=== PATIENT | female | born 1995 | race Caucasian/White ===

== ENCOUNTER 2021-08-27 11:26 | Inpatient (IN) | payer BC ==
[~2021-08-27] VITALS: Ht 162.6 cm; Wt 57.7 kg
[2021-08-27] MEDS ORDERED: normal saline 1000ML IV soln IVB ONE ×2 (11:50→13:00)
[2021-08-27] MEDS ORDERED: ondansetron/PF 4mg/2ml inj IV ONE (12:30)
[2021-08-27 12:43] LABS: BASOPHILS % (AUTO) 0.4 % (0-1); EOSINOPHILS % (AUTO) 0.1 % (0-6); HEMATOCRIT 47.4 % (35.0-45.0); HEMOGLOBIN 15.8 g/dl (12.0-16.0); LYMPHOCYTES # (AUTO) 1.1 X10'3 (1.1-4.8); LYMPHOCYTES % (AUTO) 9.2 % (21-51); MEAN CORPUSCULAR HEMOGLOBIN 33.1 PG (27.0-31.0); MEAN CORPUSCULAR HGB CONC 33.2 g/dL (33.0-36.5); MEAN CORPUSCULAR VOLUME 99.7 FL (78-98); MEAN PLATELET VOLUME 8.6 FL (7.4-10.4); MONOCYTES # (AUTO) 0.7 X10'3 (0-0.9); MONOCYTES % (AUTO) 5.6 % (2-12); NEUTROPHILS # (AUTO) 10.4 X10'3 (1.8-7.7); NEUTROPHILS % (AUTO) 84.7 % (42-75); PLATELET COUNT 406 X10'3 (140-440); RED BLOOD COUNT 4.75 X10'6 (4.20-5.60); RED CELL DISTRIBUTION WIDTH 14.8 % (11.5-14.5); WHITE BLOOD COUNT 12.2 X10'3 (4.5-11.0)
[2021-08-27 12:58] LABS: ALANINE AMINOTRANSFERASE 23 U/L (12-78); ALBUMIN 3.9 G/DL (3.4-5.0); ALBUMIN/GLOBULIN RATIO 0.8 (1.1-1.5); ALKALINE PHOSPHATASE 205 IU/L (46-116); ANION GAP 26 (8-16); ASPARTATE AMINO TRANSFERASE 24 U/L (10-37); BILIRUBIN,TOTAL 0.9 MG/DL (0.1-1.0); BLOOD UREA NITROGEN 12 MG/DL (7-18); BUN/CREATININE RATIO 11.8 (6.6-38.0); CALCIUM 9.4 MG/DL (8.5-10.1); CHLORIDE 95 MMOL/L (99-107); CREATININE 1.02 MG/DL (0.40-0.90); LIPASE 53 U/L (73-393); MAGNESIUM 2.4 MG/DL (1.5-2.4); PHOSPHORUS 5.1 MG/DL (2.3-4.5); POTASSIUM 5.9 MMOL/L (3.5-5.1); SODIUM 130 MMOL/L (135-145); TOTAL PROTEIN 8.9 G/DL (6.4-8.2); eGFR 67 ML/MIN
[2021-08-27] MEDS ORDERED: insulin regular, human 10 units/0.1 ml syringe IV ONE (13:00)
[2021-08-27 13:07] LABS: GLUCOSE 494 MG/DL (70-104); TOTAL CARBON DIOXIDE 9.3 MMOL/L (24-32)
[2021-08-27] MEDS ORDERED: potassium Cl 20 mEq SR tablet PO PRN ×3 (13:25→15:05)
[2021-08-27] MEDS ORDERED: sodium phosphate inj. 15 MMOL in dextrose 5%-water 250 ML IV PRN (13:25)
[2021-08-27] MEDS ORDERED: sodium bicarbonate (8.4%) inj. 100 MEQ in dextrose 5% water 500ml 500 ML IV PRN ×2 (13:25→15:05)
[2021-08-27] MEDS ORDERED: Neutra Phos packet PO PRN ×2 (13:25→15:05)
[2021-08-27] MEDS ORDERED: sodium phosphate inj. 30 MMOL in dextrose 5%-water 250 ML IV PRN ×2 (13:25→15:05)
[2021-08-27] MEDS ORDERED: Insulin Reg/NS 100units/100mL 100 ML IV SCH (13:25)
[2021-08-27] MEDS ORDERED: potassium CL 20mEq in D5-1/2NS 1,000 ML IV PRN ×2 (13:25→15:05)
[2021-08-27] MEDS ORDERED: sodium bicarbonate (8.4%) inj. 50 MEQ in dextrose 5% water 500ml 250 ML IV PRN ×2 (13:25→15:05)
[2021-08-27] MEDS ORDERED: potassium Cl 40MEQ/1/2NS 520ml 520 ML IV PRN ×4 (13:25→15:05)
[2021-08-27 13:39] LABS: CLARITY,URINE CLEAR (Clear); COLOR,URINE YELLOW (Yellow); GLUCOSE, URINE 500 mg/dl (Neg); KETONES,URINE >=80 mg/dl (Neg); LEUKOCYTE ESTERASE ,URINE NEGATIVE (Neg); NITRITES, URINE NEGATIVE (Neg); OCCULT BLOOD,URINE TRACE-INTACT (Neg); PH,URINE 5.5 (4.8-8.0); PROTEIN,URINE NEGATIVE (Neg); UROBILINOGEN,URINE 0.2 E.U/dL (0.2-1.0)
[2021-08-27 13:40] LABS: UA COLLECTION TYPE CLN CATCH MIDSTREAM
[2021-08-27 13:54] LABS: SQUAMOUS EPITHELIAL CELL,UR FEW /LPF (FEW); URINE AMPHETAMINE SCREEN NEGATIVE (Neg); URINE BARBITUATE SCREEN NEGATIVE (Neg); URINE BENZODIAZEPINES SCREEN NEGATIVE (Neg); URINE CANNABINOID SCREEN NEGATIVE (Neg); URINE COCAINE SCREEN NEGATIVE (Neg); URINE METHADONE SCREEN NEGATIVE (Neg); URINE OPIATE SCREEN NEGATIVE (Neg); URINE PHENCYCLIDINE SCREEN NEGATIVE (Neg)
[2021-08-27 13:57] LABS: BACTERIA,URINE FEW /HPF (Neg); RBC,URINE 0-2 /HPF (0-2); WBC,URINE NONE SEEN /HPF (0-4); YEAST FEW /HPF (NEGATIVE)
[2021-08-27] MEDS: normal saline 1000ml 1,000 ML IV SCH ×8 (13:58→22:56)
[2021-08-27 13:59] LABS: ABG HCO3 4.2 mmol/L (22.0-26.0); ABG OXYGEN SATURATION 98.2 % (94-97); ABG PCO2 (T) 13.2 mmHg (32.0-45.0); ABG PO2 (T) 130.4 mmHg (75.0-100.0); ALLEN'S TEST POSITIVE; FCOHb 0.8 % (0.0-3.9); FMetHb 0.3 % (0.0-1.5); FO2Hb 97.1 % (94-97); PATIENT TEMPERATURE 36.2; TOTAL HEMOGLOBIN 14.9 G/dl (12.0-16.0)
[2021-08-27 14:01] LABS: ALBUMIN 3.2 G/DL (3.4-5.0); ANION GAP 24 (8-16); BLOOD UREA NITROGEN 11 MG/DL (7-18); BUN/CREATININE RATIO 11.6 (6.6-38.0); CALCIUM 7.8 MG/DL (8.5-10.1); CHLORIDE 103 MMOL/L (99-107); CREATININE 0.95 MG/DL (0.40-0.90); GLUCOSE 424 MG/DL (70-104); POTASSIUM 5.8 MMOL/L (3.5-5.1); SODIUM 136 MMOL/L (135-145); eGFR 72 ML/MIN
[2021-08-27 14:13] LABS: TOTAL CARBON DIOXIDE 8.9 MMOL/L (24-32)
[2021-08-27] MEDS ORDERED: famotidine 20mg tablet PO ONE (14:20)
[2021-08-27] MEDS ORDERED: HYDROcodone/acetaminophen 5mg/325mg tablet PO PRN (15:05)
[2021-08-27] MEDS ORDERED: magnesium Cl slow-release 64mg tablet PO PRN (15:05)
[2021-08-27] MEDS ORDERED: potassium CL 10mEq/100ml bag 100 ML IV PRN (15:05)
[2021-08-27] MEDS ORDERED: magnesium 4gm in 100ml NS 100 ML IV PRN (15:05)
[2021-08-27] MEDS ORDERED: ondansetron/PF 4mg/2ml inj IV PRN (15:05)
[2021-08-27] MEDS ORDERED: insulin regular, human U-100 3ml vial - multi-dose IV PRN (15:05)
[2021-08-27] MEDS ORDERED: mag hydrox/Alum hydrox/simeth 30ml oral suspension PO PRN (15:05)
[2021-08-27] MEDS ORDERED: magnesium 2GM in 50ml NS 50 ML IV PRN (15:05)
[2021-08-27] MEDS ORDERED: acetaminophen 325mg tablet PO PRN ×2 (15:05)
[2021-08-27] MEDS ORDERED: magnesium hydroxide 30ml (MOM) UD suspension PO PRN (15:05)
[2021-08-27] MEDS ORDERED: POTASSIUM BICARB 20meq eff tab 20 MEQ TABLET.EFF PO PRN ×2 (15:05)
[2021-08-27] MEDS ORDERED: HYDROcodone/acetaminophen 10/325mg tab PO PRN (15:05)
[2021-08-27] MEDS ORDERED: INSU100V11 SQ (16:21)
[2021-08-27] MEDS ORDERED: INSU100V41 SQ (16:21)
[2021-08-27] MEDS ORDERED: ETON1VAG VG (16:21)
[2021-08-27] MEDS: dextrose 5%-1/2 normal saline 1,000 ML IV SCH ×2 (16:31→20:10)
[2021-08-27 17:54] LABS: ALBUMIN 2.7 G/DL (3.4-5.0); ANION GAP 19 (8-16); BLOOD UREA NITROGEN 8 MG/DL (7-18); BUN/CREATININE RATIO 10.8 (6.6-38.0); CALCIUM 7.2 MG/DL (8.5-10.1); CHLORIDE 108 MMOL/L (99-107); CREATININE 0.74 MG/DL (0.40-0.90); GLUCOSE 210 MG/DL (70-104); PHOSPHORUS 2.1 MG/DL (2.3-4.5); POTASSIUM 4.7 MMOL/L (3.5-5.1); SODIUM 136 MMOL/L (135-145); eGFR > 90 ML/MIN
[2021-08-27 19:35] LABS: BASOPHILS # (AUTO) 0.1 X10'3 (0-0.2); BASOPHILS % (AUTO) 0.4 % (0-1); EOSINOPHILS % (AUTO) 0.1 % (0-6); HEMATOCRIT 39.8 % (35.0-45.0); HEMOGLOBIN 13.2 g/dl (12.0-16.0); LYMPHOCYTES # (AUTO) 2.1 X10'3 (1.1-4.8); LYMPHOCYTES % (AUTO) 13.7 % (21-51); MEAN CORPUSCULAR HEMOGLOBIN 33.4 PG (27.0-31.0); MEAN CORPUSCULAR HGB CONC 33.3 g/dL (33.0-36.5); MEAN CORPUSCULAR VOLUME 100.4 FL (78-98); MEAN PLATELET VOLUME 7.8 FL (7.4-10.4); MONOCYTES % (AUTO) 6.4 % (2-12); NEUTROPHILS # (AUTO) 12.3 X10'3 (1.8-7.7); NEUTROPHILS % (AUTO) 79.4 % (42-75); PLATELET COUNT 341 X10'3 (140-440); RED BLOOD COUNT 3.97 X10'6 (4.20-5.60); RED CELL DISTRIBUTION WIDTH 14.8 % (11.5-14.5); WHITE BLOOD COUNT 15.5 X10'3 (4.5-11.0)
[2021-08-27 20:00] VITALS: BP 103/72
[2021-08-27] MEDS: K and/or MAG REPLACEMENT MC SCH (20:00)
[2021-08-27] MEDS: docusate sod 100mg capsule PO SCH (20:00)
[2021-08-27] MEDS ORDERED: K and/or MAG REPLACEMENT MC SCH ×2 (20:00)
[2021-08-27] MEDS: Insulin Reg/NS 100units/100mL 100 ML IV SCH (20:48)
[2021-08-27] MEDS: enoxaparin 40mg/0.4ml syringe SQ SCH (21:58)
[2021-08-27 22:00] VITALS: BP 108/76
[2021-08-27 22:17] LABS: PHOSPHORUS 1.7 MG/DL (2.3-4.5)
--- NOTE | 2021-08-27 22:46 | NUR ---
patient arrived to unit about 1999, peasant and denies pain, just fatigued. nausea and vomiting has improved since admit. Patient blood glucose staying stable in 220s, denies pain, up to bathroom SBA with IV lines. Patient states she is supposed to wear glasses but needs new prescription, had blurred vision on admit but has improved, last BM 08/26. Patient phos low with last lab and PRN sodium phosphate 15Mmol requested from pharmacy along with new bag of myxredlin insulin infusion. Patient able to adjust position and makes needs known. Continuing hourly accuchecks.
[2021-08-27 22:57] LABS: ALBUMIN 2.6 G/DL (3.4-5.0); ANION GAP 14 (8-16); BLOOD UREA NITROGEN 6 MG/DL (7-18); BUN/CREATININE RATIO 7.8 (6.6-38.0); CALCIUM 7.4 MG/DL (8.5-10.1); CHLORIDE 106 MMOL/L (99-107); CREATININE 0.77 MG/DL (0.40-0.90); GLUCOSE 226 MG/DL (70-104); POTASSIUM 4.3 MMOL/L (3.5-5.1); SODIUM 132 MMOL/L (135-145); eGFR > 90 ML/MIN
[2021-08-27 23:07] LABS: TOTAL CARBON DIOXIDE 12.4 MMOL/L (24-32)
--- NOTE | 2021-08-27 23:18 | NUR ---
received call from lab, patient CO2 still critical low but trending up since admission, 12.4.
[2021-08-28] MEDS: dextrose 5%-1/2 normal saline 1,000 ML IV SCH ×7 (00:10→23:18)
[2021-08-28] MEDS: Insulin Reg/NS 100units/100mL 100 ML IV SCH (00:46)
--- NOTE | 2021-08-28 01:10 | NUR ---
Dr Villalobos called, pt blood glucose 147 currently on D5 1/2NS 20K at 250ml/hr and insulin at 5units. All labs reviewed and order received to decrease insulin to 3units and change fluids to D10 1/2NS 20K at 75ml/hr. Orders entered, insulin decreased and waiting on pharmacy to make new bag of fluids.
[2021-08-28] MEDS: sodium phosphate inj. 15 MMOL in dextrose 5%-water 250 ML IV PRN ×2 (01:18→16:31)
[2021-08-28] MEDS: normal saline 1000ml 1,000 ML IV SCH ×8 (01:23→23:18)
[2021-08-28 02:00] VITALS: BP 100/64
[2021-08-28] MEDS: Potassium Cl inj 20 MEQ in DEXTROSE 10 % AND 0.45 % NACL 990 ML IV SCH ×2 (03:18→09:17)
[2021-08-28 03:20] LABS: BASOPHILS # (AUTO) 0.1 X10'3 (0-0.2); BASOPHILS % (AUTO) 0.5 % (0-1); EOSINOPHILS # (AUTO) 0.1 X10'3 (0-0.9); EOSINOPHILS % (AUTO) 0.8 % (0-6); HEMATOCRIT 38.2 % (35.0-45.0); HEMOGLOBIN 12.8 g/dl (12.0-16.0); LYMPHOCYTES # (AUTO) 2.2 X10'3 (1.1-4.8); LYMPHOCYTES % (AUTO) 16.2 % (21-51); MEAN CORPUSCULAR HEMOGLOBIN 32.8 PG (27.0-31.0); MEAN CORPUSCULAR HGB CONC 33.6 g/dL (33.0-36.5); MEAN CORPUSCULAR VOLUME 97.4 FL (78-98); MEAN PLATELET VOLUME 7.9 FL (7.4-10.4); MONOCYTES # (AUTO) 1.2 X10'3 (0-0.9); MONOCYTES % (AUTO) 8.9 % (2-12); NEUTROPHILS # (AUTO) 9.8 X10'3 (1.8-7.7); NEUTROPHILS % (AUTO) 73.6 % (42-75); PLATELET COUNT 283 X10'3 (140-440); RED BLOOD COUNT 3.92 X10'6 (4.20-5.60); RED CELL DISTRIBUTION WIDTH 14.9 % (11.5-14.5); WHITE BLOOD COUNT 13.3 X10'3 (4.5-11.0)
[2021-08-28 03:37] LABS: ALANINE AMINOTRANSFERASE 20 U/L (12-78); ALBUMIN 2.3 G/DL (3.4-5.0); ALBUMIN/GLOBULIN RATIO 0.7 (1.1-1.5); ALKALINE PHOSPHATASE 121 IU/L (46-116); ANION GAP 10 (8-16); ASPARTATE AMINO TRANSFERASE 28 U/L (10-37); BILIRUBIN,TOTAL 0.3 MG/DL (0.1-1.0); BLOOD UREA NITROGEN 5 MG/DL (7-18); BUN/CREATININE RATIO 7.5 (6.6-38.0); CALCIUM 7.5 MG/DL (8.5-10.1); CHLORIDE 110 MMOL/L (99-107); CREATININE 0.67 MG/DL (0.40-0.90); GLUCOSE 133 MG/DL (70-104); MAGNESIUM 1.6 MG/DL (1.5-2.4); PHOSPHORUS 2.1 MG/DL (2.3-4.5); POTASSIUM 3.5 MMOL/L (3.5-5.1); SODIUM 135 MMOL/L (135-145); TOTAL PROTEIN 5.7 G/DL (6.4-8.2); eGFR > 90 ML/MIN
[2021-08-28 06:00] VITALS: BP 90/53
[2021-08-28] MEDS: docusate sod 100mg capsule PO SCH ×2 (07:09→20:00)
[2021-08-28 07:35] LABS: ALBUMIN 2.2 G/DL (3.4-5.0); ANION GAP 10 (8-16); BLOOD UREA NITROGEN 4 MG/DL (7-18); BUN/CREATININE RATIO 5.6 (6.6-38.0); CALCIUM 7.6 MG/DL (8.5-10.1); CHLORIDE 108 MMOL/L (99-107); CREATININE 0.71 MG/DL (0.40-0.90); GLUCOSE 211 MG/DL (70-104); PHOSPHORUS 2.6 MG/DL (2.3-4.5); POTASSIUM 3.5 MMOL/L (3.5-5.1); SODIUM 133 MMOL/L (135-145); eGFR > 90 ML/MIN
--- NOTE | 2021-08-28 07:45 | NUR ---
PAGER ID: [phone] [facility]: [facility] Bain: Critical Result: CO2: 15. SHABBIR Koo [id number]
[2021-08-28] MEDS: K and/or MAG REPLACEMENT MC SCH ×2 (08:11→19:11)
[2021-08-28] MEDS: potassium Cl 20 mEq SR tablet PO PRN ×3 (08:12→16:52)
--- NOTE | 2021-08-28 08:17 | NUR ---
PAGER ID: [phone] [facility]: [facility] MildredVenancio coultery: Pt is requesting to eat prior to their CO2 rising above 20. Current CO2 is 15. SHABBIR Koo [id number]
--- NOTE | 2021-08-28 08:39 | NUR ---
Initial: Pt admitted w/ DKA per EMR. Currently on Carb control diet pending PO intake at this time. Noted that there is no A1c hx in EMR, recommend obtaining A1c if MD agreeable, will further determine appropriateness of DM ed. Pt receiving D10 1/2NS w/ KCl at 225ml/hr which would provide 1836kcals/day. LBM 7/3 receiving routine colace. Will continue to monitor. Recs: 1. Continue Carb control diet as tolerated 2. Bowel care per rx 3. Scaled wts 4. Obtain A1c to determine appropriateness for DM ed by RD Addendum: 08/28/21 at [address] Amended: Links added.
[2021-08-28 09:20] LABS: ALBUMIN 2.1 G/DL (3.4-5.0); ANION GAP 10 (8-16); BLOOD UREA NITROGEN 5 MG/DL (7-18); BUN/CREATININE RATIO 6.9 (6.6-38.0); CALCIUM 7.7 MG/DL (8.5-10.1); CHLORIDE 109 MMOL/L (99-107); CREATININE 0.72 MG/DL (0.40-0.90); GLUCOSE 179 MG/DL (70-104); POTASSIUM 3.3 MMOL/L (3.5-5.1); SODIUM 133 MMOL/L (135-145); eGFR > 90 ML/MIN
[2021-08-28 09:38] LABS: TOTAL CARBON DIOXIDE 13.6 MMOL/L (24-32)
[2021-08-28] MEDS ORDERED: sodium bicarbonate (8.4%) 1 mEq/ml syringe IV ONE (09:45)
--- NOTE | 2021-08-28 10:21 | NUR ---
PAGER ID: [phone] MESSAGE: Room: 3476B: Mildred: Order clarification: Did you want the sodium bicarb to be in a drip or an IV push? If you want it in a drip, what IV fluid do you want it in? Please clarify. SHABBIR Koo [phone]
[2021-08-28] MEDS: pantoprazole 40mg Tablet.DR PO SCH ×2 (10:32→20:06)
--- NOTE | 2021-08-28 10:38 | NUR ---
PAGER ID: [phone] MESSAGE: Room: 4459B: Mildred: Can you please clarify the sodium bicarb order? Do you want it to be an IV push or a drip? If you want it to be a drip, what rate and IV solution do you want it in? SHABBIR Koo [phone]
--- NOTE | 2021-08-28 10:53 | NUR ---
promotional table spacer PAGER ID: [phone] MESSAGE: Room: 3018B: Shyann: Pharmacy does not want to send me sodium bicarb ampules. They want the sodium bicarb to be in a drip. SHABBIR Koo [phone]
[2021-08-28 11:00] VITALS: BP 102/70
[2021-08-28 11:38] LABS: ALANINE AMINOTRANSFERASE 19 U/L (12-78); ALBUMIN 2.6 G/DL (3.4-5.0); ALBUMIN/GLOBULIN RATIO 0.7 (1.1-1.5); ALKALINE PHOSPHATASE 122 IU/L (46-116); ANION GAP 10 (8-16); ASPARTATE AMINO TRANSFERASE 22 U/L (10-37); BILIRUBIN,TOTAL 0.4 MG/DL (0.1-1.0); BLOOD UREA NITROGEN 4 MG/DL (7-18); CHLORIDE 109 MMOL/L (99-107); CREATININE 0.67 MG/DL (0.40-0.90); GLUCOSE 148 MG/DL (70-104); PHOSPHORUS 1.6 MG/DL (2.3-4.5); POTASSIUM 3.5 MMOL/L (3.5-5.1); SODIUM 137 MMOL/L (135-145); TOTAL CARBON DIOXIDE 17.9 MMOL/L (24-32); TOTAL PROTEIN 6.2 G/DL (6.4-8.2); eGFR > 90 ML/MIN
--- NOTE | 2021-08-28 12:15 | NUR ---
PAGER ID: [phone] MESSAGE: Room: 3018B: Mildred: Her CO2 is now 17.9 per their 1100 BMP lab. The sodium bicarb is infusing. Are they okay to eat? SHABBIR Koo [phone]
[2021-08-28] MEDS ORDERED: insulin Lispro (HumaLOG) vial - multi-dose SQ SCH (12:25)
[2021-08-28] MEDS ORDERED: dextrose 50%-water 50ml dispensing syringe IV PRN ×2 (12:25)
[2021-08-28] MEDS ORDERED: MESSAGE TO PHARMACY PO ONE (12:25)
[2021-08-28] MEDS ORDERED: glucagon, human recombinant 1mg kit SUBCUT PRN (12:25)
[2021-08-28] MEDS ORDERED: DEXTROSE 15 GM of carb/4 tabs (each vial/BOTTLE has 4 tablets) PO PRN ×2 (12:25)
[2021-08-28 12:43] LABS: HEMOGLOBIN A1C 12.3 % (4.5-6.2)
[2021-08-28 15:00] VITALS: BP 110/70
[2021-08-28 15:09] LABS: ALANINE AMINOTRANSFERASE 19 U/L (12-78); ALBUMIN 2.4 G/DL (3.4-5.0); ALBUMIN/GLOBULIN RATIO 0.8 (1.1-1.5); ALKALINE PHOSPHATASE 116 IU/L (46-116); ANION GAP 9 (8-16); ASPARTATE AMINO TRANSFERASE 24 U/L (10-37); BILIRUBIN,TOTAL 0.4 MG/DL (0.1-1.0); CALCIUM 7.6 MG/DL (8.5-10.1); CHLORIDE 108 MMOL/L (99-107); GLUCOSE 258 MG/DL (70-104); MAGNESIUM 1.5 MG/DL (1.5-2.4); PHOSPHORUS 1.3 MG/DL (2.3-4.5); POTASSIUM 3.4 MMOL/L (3.5-5.1); SODIUM 137 MMOL/L (135-145); TOTAL CARBON DIOXIDE 20.2 MMOL/L (24-32); TOTAL PROTEIN 5.5 G/DL (6.4-8.2)
[2021-08-28 15:18] LABS: BLOOD UREA NITROGEN 2 MG/DL (7-18); BUN/CREATININE RATIO 2.4 (6.6-38.0); CREATININE 0.82 MG/DL (0.40-0.90); eGFR 86 ML/MIN
--- NOTE | 2021-08-28 15:46 | NUR ---
PAGER ID: [phone] MESSAGE: Room: 3018B: Agata Levy: This pt's bicarb is now 20.2. They are off the insulin drip and tolerating PO intake. Subq insulin has been given. Would you like them to be on fluids with potassium? SHABBIR Koo 1328
[2021-08-28] MEDS: Potassium Cl inj 20 MEQ in normal saline 1000ml 990 ML IV SCH (16:31)
--- NOTE | 2021-08-28 17:07 | NUR ---
PAGER ID: [phone] MESSAGE: Room: 9970B: MildredMiriamAgata: This pt is requesting to speak with you. Also, can they please get a nicotine patch? They are a 1/2 pack per day smoker. SHABBIR Koo [phone]
[2021-08-28] MEDS: nicotine 14mg patch - 24hr TD SCH (17:24)
[2021-08-28 18:00] VITALS: BP 142/93
[2021-08-28] MEDS: enoxaparin 40mg/0.4ml syringe SQ SCH (20:06)
[2021-08-28] MEDS: thiamine 100mg tablet PO SCH (20:07)
[2021-08-28] MEDS ORDERED: insulin glargine (Lantus) pen - multi-dose SQ SCH (21:00)
[2021-08-28 21:31] LABS: ALBUMIN 2.5 G/DL (3.4-5.0); ANION GAP 11 (8-16); BLOOD UREA NITROGEN 2 MG/DL (7-18); BUN/CREATININE RATIO 2.3 (6.6-38.0); CHLORIDE 110 MMOL/L (99-107); CREATININE 0.86 MG/DL (0.40-0.90); GLUCOSE 119 MG/DL (70-104); MAGNESIUM 1.8 MG/DL (1.5-2.4); PHOSPHORUS 2.3 MG/DL (2.3-4.5); POTASSIUM 3.3 MMOL/L (3.5-5.1); SODIUM 141 MMOL/L (135-145); TOTAL CARBON DIOXIDE 20.4 MMOL/L (24-32); eGFR 81 ML/MIN
[2021-08-28 22:00] VITALS: BP 121/77
[2021-08-29] MEDS: Potassium Cl inj 20 MEQ in normal saline 1000ml 990 ML IV SCH ×2 (01:45→11:50)
[2021-08-29 02:00] VITALS: BP 113/71
[2021-08-29] MEDS: Potassium Cl inj 20 MEQ in DEXTROSE 10 % AND 0.45 % NACL 990 ML IV SCH (03:07)
[2021-08-29] MEDS: dextrose 5%-1/2 normal saline 1,000 ML IV SCH ×3 (03:26→12:10)
[2021-08-29] MEDS: normal saline 1000ml 1,000 ML IV SCH ×3 (04:32→12:59)
[2021-08-29 06:00] VITALS: BP 117/75
--- NOTE | 2021-08-29 06:30 | NUR ---
Patient in room PCU 3018. I have received report from SHABBIR Mendoza and had the opportunity to ask questions and assume patient care.
[2021-08-29 07:49] LABS: BASOPHILS % (AUTO) 0.4 % (0-1); EOSINOPHILS # (AUTO) 0.1 X10'3 (0-0.9); EOSINOPHILS % (AUTO) 1.4 % (0-6); HEMATOCRIT 34.7 % (35.0-45.0); HEMOGLOBIN 11.9 g/dl (12.0-16.0); LYMPHOCYTES # (AUTO) 1.8 X10'3 (1.1-4.8); LYMPHOCYTES % (AUTO) 32.2 % (21-51); MEAN CORPUSCULAR HEMOGLOBIN 33.5 PG (27.0-31.0); MEAN CORPUSCULAR HGB CONC 34.2 g/dL (33.0-36.5); MEAN CORPUSCULAR VOLUME 97.9 FL (78-98); MEAN PLATELET VOLUME 8.2 FL (7.4-10.4); MONOCYTES # (AUTO) 0.7 X10'3 (0-0.9); MONOCYTES % (AUTO) 11.9 % (2-12); NEUTROPHILS # (AUTO) 3.1 X10'3 (1.8-7.7); NEUTROPHILS % (AUTO) 54.1 % (42-75); PLATELET COUNT 237 X10'3 (140-440); RED BLOOD COUNT 3.54 X10'6 (4.20-5.60); RED CELL DISTRIBUTION WIDTH 15.4 % (11.5-14.5); WHITE BLOOD COUNT 5.7 X10'3 (4.5-11.0)
[2021-08-29] MEDS: thiamine 100mg tablet PO SCH (08:00)
[2021-08-29] MEDS ORDERED: multivitamins, therapeutics tablet PO SCH (08:00)
[2021-08-29] MEDS: docusate sod 100mg capsule PO SCH (08:00)
[2021-08-29] MEDS: nicotine 14mg patch - 24hr TD SCH (08:00)
[2021-08-29] MEDS ORDERED: folic acid 1mg tablet PO SCH (08:00)
[2021-08-29] MEDS: K and/or MAG REPLACEMENT MC SCH (08:00)
[2021-08-29 08:15] LABS: ALANINE AMINOTRANSFERASE 26 U/L (12-78); ALBUMIN 2.1 G/DL (3.4-5.0); ALBUMIN/GLOBULIN RATIO 0.7 (1.1-1.5); ALKALINE PHOSPHATASE 100 IU/L (46-116); ANION GAP 9 (8-16); ASPARTATE AMINO TRANSFERASE 58 U/L (10-37); BILIRUBIN,TOTAL 0.3 MG/DL (0.1-1.0); BLOOD UREA NITROGEN 2 MG/DL (7-18); CALCIUM 7.8 MG/DL (8.5-10.1); CHLORIDE 113 MMOL/L (99-107); CREATININE 0.66 MG/DL (0.40-0.90); GLUCOSE 134 MG/DL (70-104); MAGNESIUM 1.8 MG/DL (1.5-2.4); POTASSIUM 3.3 MMOL/L (3.5-5.1); SODIUM 144 MMOL/L (135-145); TOTAL CARBON DIOXIDE 21.6 MMOL/L (24-32); TOTAL PROTEIN 5.1 G/DL (6.4-8.2); eGFR > 90 ML/MIN
--- NOTE | 2021-08-29 09:44 | NUR ---
f/u: A1c was obtained and is 12.3 per EMR. Pt states that she has become resistant to her insulin medication and is working on getting different medications w/ insulin pump. She also states that she regularly sees and embedded firmware developer and has a balanced diet, saying she mainly eats just meat and veggies; which does not happen to be very balanced. Pt did not want DM education, but was able to leave written DM w/ RD contact info at pt bedside. Addendum: 08/29/21 at [address] Amended: Links added.
[2021-08-29] MEDS ORDERED: potassium Cl 20 mEq SR tablet PO STA (10:06)
[2021-08-29 10:12] LABS: ABG BASE EXCESS -0.2 mmol/L (-2.0-2.0); ABG HCO3 21.6 mmol/L (22.0-26.0); ABG OXYGEN SATURATION 98.4 % (94-97); ABG PCO2 (T) 27.7 mmHg (32.0-45.0); ABG PO2 (T) 115.1 mmHg (75.0-100.0); ALLEN'S TEST POSITIVE; FCOHb 0.3 % (0.0-3.9); FMetHb 0.2 % (0.0-1.5); FO2Hb 97.9 % (94-97); TOTAL HEMOGLOBIN 13.1 G/dl (12.0-16.0)
[2021-08-29] MEDS: pantoprazole 40mg Tablet.DR PO SCH (10:42)
[2021-08-29] MEDS: potassium Cl 20 mEq SR tablet PO PRN (10:45)
[2021-08-29 11:00] VITALS: BP 118/87
--- NOTE | 2021-08-29 12:48 | NUR ---
PAGER ID: [phone] MESSAGE: Room: 5556B: Agata Levy: Can you please place her discharge order? SHABBIR Koo [phone]
--- NOTE | 2021-08-29 13:31 | NUR ---
Pt discharged to home from the hospital. Discharge paperwork was filled out and signed with the assistance of this typewriter mechanic. No new medications were prescribed to this pt. PIV and telemetry were removed and belongings were returned at the time of discharge.
== END 2021-08-29 13:29 | disposition home or self-care (01) | DRG 639 ==
LOC: ER 11:27 → ED HOLD 15:09 → PCU 3S 19:57
PROVIDERS: ADMIT Internal Medicine; ATTEND Internal Medicine
DX: E10.10 Type 1 diabetes mellitus with ketoacidosis without coma (principal); F17.210 Nicotine dependence, cigarettes, uncomplicated; F10.10 Alcohol abuse, uncomplicated; Z88.8 Allergy status to other drugs, medicaments and biological substances; Z79.4 Long term (current) use of insulin; Z91.14 Patient's other noncompliance with medication regimen
CPT/HCPCS: 36415; 36600; 80048; 80053; 80305; 81001; 82803; 82948; 83036; 83605; 83690; 83735; 83880; 84100; 84132; 84145; 85018; 85025; 87081; 96361; 96374; 96375; 99285; G0378; J1650; J1815; J2405; J3480; J3490; J7030; J7042; J7060

== ENCOUNTER 2021-12-03 22:07 | Emergency (ER) | payer BC ==
[~2021-12-03] VITALS: Ht 162.6 cm; Wt 58.5 kg
[~2021-12-03 22:07] MED LIST: ETON1VAG VG; INSU100V11 SQ; INSU100V41 SQ
[2021-12-03 22:10] VITALS: BP 125/86
== END 2021-12-04 07:35 | disposition left against medical advice (07) ==
LOC: ER 22:07
DX: M25.532 Pain in left wrist (principal); Z53.21 Procedure and treatment not carried out due to patient leaving prior to being seen by health care provider
CPT/HCPCS: 73110